=== PATIENT | male | born 1970 | race American Indian/Alaskan Native ===

== ENCOUNTER 2019-07-12 10:59 | Outpatient (CLI) | payer OTHER ==
--- NOTE | 2019-07-12 12:16 | Magnetic Resonance Report ---
MR LE joint RT wo con INDICATION / CLINICAL INFORMATION: M86.171 ACUTE OSTEOMYELITIS RIGHT FOOT. TECHNIQUE: Multiplanar, multisequence MR images were obtained. Routine MRI of the right foot without IV contrast . COMPARISON: None available. FINDINGS: There is abnormal T1 and T2-weighted signal abnormality involving the head of the second metatarsal. There is some mild overlying subcutaneous edema of the second toe. No drainable underlying fluid bernrado ection is identified. The flexor and extensor tendons of the foot are grossly intact. No fracture or subluxation IMPRESSION: Acute osteomyelitis involving the distal aspect of the second toe metatarsal, as above.. Signer Name: Edwin Otoole MD Signed: 07/12/2019 12:11 PM Workstation Name: [id number]
== END 2019-07-12 11:00 | disposition home or self-care (01) ==
LOC: MRI 10:59
PROVIDERS: ATTEND Podiatrist Foot & Ankle Surgery
DX: M86.171 Other acute osteomyelitis, right ankle and foot (principal); I70.209 Unspecified atherosclerosis of native arteries of extremities, unspecified extremity
CPT/HCPCS: 73721